=== PATIENT | female | born 1990 | race African-American/Black ===

== ENCOUNTER 2019-08-03 23:31 | Emergency (ER) | payer OTHER ==
[~2019-08-03] VITALS: Ht 172.7 cm; Wt 88.9 kg
[~2019-08-03 23:31] MED LIST: NAPROSYN500 MG PO; NOHOMEMEDICATIONS
[2019-08-04] MEDS ORDERED: LANTUS SUBQ
[2019-08-04] MEDS ORDERED: HUMALOG100 UNIT/1 SUBQ (00:01)
[2019-08-04 00:41] VITALS: BP 153/95
== END 2019-08-04 00:42 | disposition home or self-care (01) ==
LOC: ER 23:31
DX: S05.01XA Injury of conjunctiva and corneal abrasion without foreign body, right eye, initial encounter (principal); E11.9 Type 2 diabetes mellitus without complications; W45.8XXA Other foreign body or object entering through skin, initial encounter; Y92.89 Other specified places as the place of occurrence of the external cause; Y93.89 Activity, other specified; Y99.8 Other external cause status